=== PATIENT | female | born 1955 | race Caucasian/White ===

== ENCOUNTER 2019-11-03 08:18 | Emergency (ER) | payer MEDICARE ==
[~2019-11-03] VITALS: Ht 160 cm; Wt 135.0 kg
--- NOTE | 2019-11-03 08:42 | NUR ---
BIB [facility] NOSE BLEED HTN DENIES ANY BLOOD THINNERS RECENT DENTAL PAIN CAUSING BARAKAT NOSE CLAMP IN PLACE ON ARRIVAL PT AO4 NADN HX CHRONIC PAIN MIGRAINS FIBRO PT CLOTHING REMOVED AND PLACED ON A MONITOR PT STABLE AT THIS TIME CLAMP REMAINS IN PLACE W MINIMAL BLEEDING INTO THE BACK OF THE THROAT
[2019-11-03] MEDS ORDERED: HYDROCODONE (09:29)
[2019-11-03] MEDS ORDERED: TRAM50TA2 PO (09:29)
[2019-11-03] MEDS ORDERED: LISI1TAB20 PO (09:29)
[2019-11-03] MEDS ORDERED: MELO15TA24 PO (09:29)
[2019-11-03] MEDS ORDERED: LISINOPRIL 20 MG TABLET PO ONE (09:30)
[2019-11-03] MEDS ORDERED: SUMA100T4 PO (09:30)
--- NOTE | 2019-11-03 09:30 | NUR ---
PT SITTING UPRIGHT ON BED, DABBING AT NOSE. NO ACTIVE EPISTAXSIS SEEN.
[2019-11-03] MEDS ORDERED: HYDR-3237 PO (09:32)
[2019-11-03] MEDS ORDERED: CYCL-259 PO (09:50)
[2019-11-03] MEDS ORDERED: HYDR-826 PO (09:50)
[2019-11-03] MEDS ORDERED: ANTI-ANXIETY (09:50)
[2019-11-03] MEDS ORDERED: LISINOPRIL 20 MG TABLET ONE (09:52)
[2019-11-03] MEDS ORDERED: HYDROCHLOROTHIAZIDE 25 MG TABLET PO ONE (10:00)
--- NOTE | 2019-11-03 10:08 | NUR ---
HCTZ RECEIVED FROM PHARMACY. PT MEDICATED PER EMAR.
--- NOTE | 2019-11-03 10:17 | NUR ---
UP TO BS COMMODE
[2019-11-03 11:30] VITALS: BP 162/70
== END 2019-11-03 11:33 | disposition home or self-care (01) ==
LOC: ED 09:20
DX: R04.0 Epistaxis (principal); H53.8 Other visual disturbances; I10 Essential (primary) hypertension; G89.29 Other chronic pain
CPT/HCPCS: 93005; 99283

== ENCOUNTER 2019-11-03 13:14 | Emergency (ER) | payer MEDICARE ==
[~2019-11-03] VITALS: Ht 160 cm; Wt 138.0 kg
[~2019-11-03 13:14] MED LIST: ANTI-ANXIETY; CYCL-259 PO; HYDR-3237 PO; HYDR-826 PO; HYDROCODONE; LISI1TAB20 PO; MELO15TA24 PO; SUMA100T4 PO; TRAM50TA2 PO
[2019-11-03] MEDS ORDERED: OXYMETAZOLINE NASAL SPRAY 0.05%,30ML ONE (13:27)
[2019-11-03] MEDS ORDERED: SILVER NITRATE STICK TP ONE (13:27)
--- NOTE | 2019-11-03 13:56 | NUR ---
REPORT RECEIVED FROM ALAINA HOLCOMB. ASSUMING PRIMARY CARE OF PT. PT LYING ON GURNERY TALKING WITH VISITOR. NO COMPLAINTS AT THIS TIME. VS OBTAINED AND WILL BE DOCUMENTED. CALL LIGHT AND PERSONAL BELONGINGS WITHIN REACH. RN TO CONTINUE TO MONITOR.
[2019-11-03] MEDS ORDERED: OXYMETAZOLINE NASAL SPRAY 0.05%, 15ML NAS ONE (14:00)
[2019-11-03 14:54] VITALS: BP 175/70
== END 2019-11-03 14:57 | disposition home or self-care (01) ==
LOC: ED 13:39
DX: R04.0 Epistaxis (principal); I10 Essential (primary) hypertension
CPT/HCPCS: 30901; 99284

== ENCOUNTER 2020-09-18 05:37 | Emergency (ER) | payer MEDICARE ==
[~2020-09-18] VITALS: Ht 160 cm; Wt 145.2 kg
[~2020-09-18 05:37] MED LIST changes: -CYCL-259 PO; +CYCL10TA2 PO
[2020-09-18 06:30] LABS: BASOPHILS % (AUTO) 1 % (0-1); EOSINOPHILS % (AUTO) 2 % (1-7); LYMPHOCYTES % (AUTO) 20 % (22-44); MEAN CORPUSCULAR HEMOGLOBIN 30.3 pg (27.0-34.8); MEAN CORPUSCULAR HGB CONC 34.4 g/dL (32.4-35.8); MONOCYTES % (AUTO) 8 % (2-9); NEUTROPHILS % (AUTO) 70 % (42-75); PLATELET COUNT 264 x10^3/uL (130-400); RED BLOOD COUNT 4.51 x10^6/uL (3.82-5.3); RED CELL DISTRIBUTION WIDTH 14.1 % (9.6-15.2)
[2020-09-18] MEDS ORDERED: ONDANSETRON ODT 8 MG PO PRN (06:30)
[2020-09-18 06:35] LABS: MD NO
[2020-09-18 06:39] LABS: ALANINE AMINOTRANSFERASE 33 U/L (12-78); ALBUMIN 3.3 g/dL (3.4-5.0); ANION GAP 8 mmol/L (5-15); CALCIUM 8.8 mg/dL (8.5-10.1); CHLORIDE 109 mmol/L (98-107); CREATININE 1.06 mg/dL (0.55-1.02)
[2020-09-18 06:50] LABS: ALKALINE PHOSPHATASE 102 U/L (45-117); BILIRUBIN,TOTAL 0.4 mg/dL (0.2-1.0); TOTAL PROTEIN 6.8 g/dL (6.4-8.2); TROPONIN I < 0.015 ng/mL (0.000-0.045)
--- NOTE | 2020-09-18 06:52 | NUR ---
PT STATES HAVING NEW CP AND UPPER BACK PAIN THAT STARTED ON FRIDAY. PAIN HAS BEEN INTERMITTENT AND BECAME WORSE TONIGHT. 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 PT CAME BACK FROM THE RESTROOM. TOOK REPORT FROM PARTH FOLEY, ASSUME CARE AT THIS TIME. PT IN BED WITH [employer] MANAGEMENT CONSULTANT, SPO2, BP Q 30 MIN, SIDE RAILS UP X2, CALL LIGHT IN REACH. WENT OVER PLAN OF CARE FROM ORDER LIST, AGREES TO PLAN OF CARE. PAIN IS AT A 8/10. NOTIFIED. NAD.
[2020-09-18] MEDS ORDERED: ACETAMINOPHEN 325 MG TABLET PO ONE (07:00)
[2020-09-18] MEDS ORDERED: ACETAMINOPHEN 325 MG TABLET ONE (07:15)
[2020-09-18 07:43] LABS: MICROSCOPIC AUTO
[2020-09-18] MEDS ORDERED: FOSFOMYCIN 3 GM PACKET PO STA (08:55)
[2020-09-18] MEDS ORDERED: FOSFOMYCIN 3 GM PACKET ONE (09:09)
[2020-09-18 09:18] VITALS: BP 125/68
== END 2020-09-18 09:21 | disposition home or self-care (01) ==
LOC: ED 08:17
DX: R07.89 Other chest pain (principal); M54.6 Pain in thoracic spine; R11.0 Nausea; R94.31 Abnormal electrocardiogram [ECG] [EKG]
CPT/HCPCS: 36415; 71045; 80053; 81001; 83735; 83880; 84443; 84484; 85025; 87086; 93005; 99285